=== PATIENT | male | born 1935 | race Caucasian/White ===

== ENCOUNTER 2018-06-11 12:25 | Inpatient (IN) | payer MEDICARE ==
[~2018-06-11] VITALS: Ht 172.7 cm; Wt 84.1 kg
--- NOTE | ~2018-06-11 | MORECARE ---
CASE MANAGEMENT DISCHARGE SUMMARY PATIENT: RUFUS BYOCE UNIT: [id number] ADM DATE: 06/11/18 AGE: 83 : 36 SEX: M ROOM/BED: D.2211 AUTHOR: CHAI JUSTICE PHYSICIAN: REFERRING PHYSICIAN: NIKHIL LY MD DATE OF SERVICE: 06/13/18 Discharge Plan Patient Name: RUFUS BOYCE [facility] [facility] 1935 Planned Disposition: Home Anticipated Discharge Date: Discharge Date: Expected LOS: Initial Reviewer: [email or web address] Initial Review Date: 06/11/2018 Generated: 06/13/18 11:45 am DCPIA - Discharge Planning Initial Assessment Updated by [email or web address]: Aylin Sargent on 06/13/18 10:43 am * Is the patient Alert and Oriented? Yes * How many steps to enter\exit or inside your home? * PCP david * Pharmacy [address] * Preadmission Environment Home Alone * ADLs Independent * Equipment None * List name and contact numbers for known caregivers / representatives who currently or will assist patient after discharge: ISMAEL [phone] * Verbal permission to speak to the caregivers and representatives has been obtained from the patient. N/A * Community resources currently utilized None * Additional services required to return to the preadmission environment? No * Can the patient safely return to the preadmission environment? Yes * Has this patient been hospitalized within the prior 30 days at any hospital? No Last DP export: 06/13/18 8:11 Patient Name: RUFUS BOYCE Page [id number] at 1045 All edits/amendments must be made on the electronic document DICTATION DATE: 06/13/18 1044 ELECTRONIC BENCH TECHNICIAN: DORIS 06/13/18 1044 RPT#: [id number] DC DATE: STATUS: ADM IN [facility] [address] [place] [address] END OF REPORT
--- NOTE | ~2018-06-11 | MORECARE ---
CASE MANAGEMENT DISCHARGE SUMMARY PATIENT: RUFUS BOYCE UNIT: [id number] ADM DATE: 06/11/18 AGE: 83 : 36 SEX: M ROOM/BED: D.2211 AUTHOR: CHAI JUSTICE PHYSICIAN: REFERRING PHYSICIAN: NIKHIL LY MD DATE OF SERVICE: 06/15/18 Discharge Plan Patient Name: RUFUS BOYCE Facility: [facility]:[place] : 1935 Planned Disposition: Home Anticipated Discharge Date: Discharge Date: Expected LOS: Initial Reviewer: [email or web address] Initial Review Date: 06/11/2018 Generated: 06/15/18 10:38 am Comments DCP- Discharge Planning Updated by [email or web address]: Cora Walden on 06/15/18 8:[address] Patient Name: RUFUS BOYCE Encounter No: [id number] : 1935 Primary Insurance: MEDICARE PART A ONLY Anticipated DC Date: Planned Disposition: Home External Planned Provider: : DCP follow-up note: Patient in agreement with discharge plan. Declines home health. States his ex- will be assisting him. States his nephew will be taking him home today. No changes to plan. Case management will follow and assist as needed. Cora Walden DCP- Discharge Planning Updated by [email or web address]: Aylin Sargent on 06/13/18 9:[address] Patient Name: RUFUS BOYCE Admission Status: ER Accout number: [id number] Admission Date: 06-11-2018 : 1935 Admission Diagnosis:OTHER SPECIFIED DISORDERS OF BLADDER Attending: NIKHIL LY Current LOS: 2 Anticipated DC Date: Planned Disposition: Home Primary Insurance: MEDICARE PART A ONLY Discharge Planning Comments: CM met with patient to assess discharge planning needs. Patient stated that he lives independently at home in [place]. His daughter will be the one to take him home. He stated that right now he does not use anything nor does he think he will need it at discharge. He does not use any DME or community resources. He may need home health, but he was not open to it at this time. I explained to him that we will see what the MD says. CM will continue to follow [employer] Commerce Retailer: Aylin Sargent DCPIA - Discharge Planning Initial Assessment Updated by [email or web address]: Aylin Sargent on 06/13/18 10:43 am * Is the patient Alert and Oriented? Yes * How many steps to enter\exit or inside your home? * PCP david * Pharmacy [address] * Preadmission Environment Home Alone * ADLs Independent * Equipment None * List name and contact numbers for known caregivers / representatives who currently or will assist patient after discharge: ISMAEL [phone] * Verbal permission to speak to the caregivers and representatives has been obtained from the patient. N/A * Community resources currently utilized None * Additional services required to return to the preadmission environment? No * Can the patient safely return to the preadmission environment? Yes * Has this patient been hospitalized within the prior 30 days at any hospital? No Coverage Notice Reviewer: [id number] Payal Walden Notice Issued Date-Time: 06/15/2018 9:25 Notice Type: IM Discharge Notice Notice Delivered To: Patient Relationship to Patient: Self Skin Care Instructor Name: Delivery Method: HAND - Hand Delivered Marielos Days: Prior Verbal Notification: Recipient Understood Notice: Yes Recipient Signature: Yes Med Rec Note Co-signed by Attending: Coverage Notice Comment: IMM explained, signed, copy given, original placed in MR Last DP export: 06/13/18 9:53 Patient Name: RUFUS BOYCE Page [id number] at 0938 All edits/amendments must be made on the electronic document DICTATION DATE: 06/15/18936 TAPE EDITOR: DORIS 06/15/18936 RPT#: [id number] DC DATE: STATUS: ADM IN [facility] [address] [place] [address] END OF REPORT
--- NOTE | ~2018-06-11 | MORECARE ---
CASE MANAGEMENT DISCHARGE SUMMARY PATIENT: RUFUS BOYCE UNIT: [id number] ADM DATE: 06/11/18 AGE: 83 : 36 SEX: M ROOM/BED: D.2211 AUTHOR: CHAI JUSTICE PHYSICIAN: REFERRING PHYSICIAN: NIKHIL LY MD DATE OF SERVICE: 06/13/18 Discharge Plan Patient Name: RUFUS BOYCE Facility: [facility]:[place] : 1935 Planned Disposition: Anticipated Discharge Date: Discharge Date: Expected LOS: Initial Reviewer: [email or web address] Initial Review Date: 06/11/2018 Generated: 06/13/18 10:11 am Patient Name: RUFUS BOYCE Page 58739 at 0911 All edits/amendments must be made on the electronic document DICTATION DATE: 06/13/18910 PUBLIC SAFETY OFFICER: DORIS 06/13/18910 RPT#: [id number] DC DATE: STATUS: ADM IN [facility] [address] [place] [address] END OF REPORT
--- NOTE | ~2018-06-11 | OP ---
PATIENT NAME: RUFUS BOYCE MEDICAL RECORD: [id number] :37 LOCATION:D.MS [address] ADMISSION DATE:06/11/18 SURGEON: BRANDON CANTRELL MD DATE OF OPERATION: 06/12/2018 SURGEON: Brandon Cantrell MD ANESTHESIA: General anesthesia by Maria Dolores Mena CRNA. 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 PROCEDURE: Cystoscopy, bladder tumor resection greater than 5 cm, and bladder neck resection. FINDINGS: No urethral stricture or tumor. Obstructive bladder neck. Extensive tumor on the lateral left wall of the bladder and the bladder neck was surrounded by tumor. Also, a small island of tumor on the right posterior wall of the bladder. The ureteral orifices could not be seen. SPECIMENS: Bladder tumor. BLOOD LOSS: Minimal. CLINICAL HISTORY: This is an 83-year-old male, who came to the Emergency Room with ongoing gross hematuria. He has had this for over 3 months. He was treated by his primary care physician with antibiotics for a possible cystitis. This did not resolve the hematuria. On CT scan, he does not have any hydronephrosis or renal mass. However, there is a large mass in the left wall of the bladder, greater than 5 cm in total size. He comes today to have the bladder tumor resected. HE IS ALLERGIC TO [place]. He was given Ancef public information specialist to the OR. DESCRIPTION OF PROCEDURE: The patient was given induction of general anesthesia. He was then placed in dorsal lithotomy position and prepped and draped. A 17-Indian cystoscope with 30-degree lens was used initially for visualization. The penile urethra shows no lesions and no obstruction. The prostatic urethra shows some degree of enlargement of the lateral lobes, but the bladder neck is extremely tall. It was with some difficulty that I managed to get the scope into the bladder. Going into the bladder, we immediately encountered papillary tumor all around the bladder neck. Some of it extends on to the prostatic urethra near the bladder neck. There was a very shaggy necrotic tumor on the left lateral wall of the bladder extending from anteriorly to posteriorly. There was also some sessile bladder lesions on the right posterior wall of the bladder. There were no lesions on the right lateral wall of the bladder or the anterior wall of the bladder elsewhere. At this point, I requested muscle paralysis. He was given intubation and ventilation. He was then paralyzed. The reason for this is to prevent triggering the obturator reflex when I am resecting the left lateral wall of the bladder. We placed in our resectoscope, which uses a 24-Indian resection loop. Saline was used and bipolar cautery was used. I initially removed the small tumor on the right posterior wall of the bladder. Then, starting from the anterior portion of the left lateral wall tumor and heading posteriorly, I dissected through the tumor with the loop. At the end of the procedure, the bladder wall was thin, but it is not perforated. The tumor seems to be invasive. The tumor specimens were elliked out and sent to pathology in formalin. Any arterial bleeding that I OPERATIVE REPORT [id number] RUFUS BOYCE encountered was immediately cauterized. Final cystoscopic view showed no further bladder tumors floating around in the bladder. A 24-Indian 3-way Branham catheter was then inserted into the bladder. The balloon was inflated with 20 cc of sterile water. Continuous bladder irrigation with normal saline was started. TRANSINT:[id number] Voice Confirmation ID: [id number] DOCUMENT ID: [id number] BRANDON CANTRELL MD at 1001 CC: [id number] DICTATION DATE: 06/12/18 1558 AIRPLANE ENGINEER: 06/12/182042 ADM IN [facility] [address] [place] [id number]
--- NOTE | ~2018-06-11 | MORECARE ---
CASE MANAGEMENT DISCHARGE SUMMARY PATIENT: RUFUS BOYCE UNIT: [id number] ADM DATE: 06/11/18 AGE: 83 : 36 SEX: M ROOM/BED: D.2211 AUTHOR: VINHDOC PHYSICIAN: REFERRING PHYSICIAN: NIKHIL LY MD DATE OF SERVICE: 06/13/18 Discharge Plan Patient Name: RUFUS BOYCE Facility: [facility]:[place] : 1935 Planned Disposition: Home Anticipated Discharge Date: Discharge Date: Expected LOS: Initial Reviewer: [id number] Initial Review Date: 06/11/2018 Generated: 06/13/18 11:53 am Comments DCP- Discharge Planning Updated by [id number]: Aylin Sargent on 06/13/18 9:[address] Patient Name: RUFUS BOYCE Admission Status: ER Accout number: [id number] Admission Date: 06-11-2018 : 1935 Admission Diagnosis:OTHER SPECIFIED DISORDERS OF BLADDER Attending: NIKHIL LY Current LOS: 2 Anticipated DC Date: Planned Disposition: Home Primary Insurance: MEDICARE PART A ONLY Discharge Planning Comments: CM met with patient to assess discharge planning needs. Patient stated that he lives independently at home in [place]. His daughter will be the one to take him home. He stated that right now he does not use anything nor does he think he will need it at discharge. He does not use any DME or community resources. He may need home health, but he was not open to it at this time. I explained to him that we will see what the MD says. CM will continue to follow Filter Tender: Aylin aSrgent DCPIA - Discharge Planning Initial Assessment Updated by [email or web address]: Aylin Sargent on 06/13/18 10:43 am * Is the patient Alert and Oriented? Yes * How many steps to enter\exit or inside your home? * PCP david * Pharmacy [address] * Preadmission Environment Home Alone * ADLs Independent * Equipment None * List name and contact numbers for known caregivers / representatives who currently or will assist patient after discharge: ISMAEL [phone] * Verbal permission to speak to the caregivers and representatives has been obtained from the patient. N/A * Community resources currently utilized None * Additional services required to return to the preadmission environment? No * Can the patient safely return to the preadmission environment? Yes * Has this patient been hospitalized within the prior 30 days at any hospital? No Last DP export: 06/13/18 9:45 Patient Name: RUFUS BOYCE Page [id number] at 1054 All edits/amendments must be made on the electronic document DICTATION DATE: 06/13/181052 MICROBIOLOGY INSTRUCTOR: DORIS 06/13/181052 RPT#: [id number] DC DATE: STATUS: ADM IN [facility] [address] [place] [address] END OF REPORT
--- NOTE | ~2018-06-11 | MORECARE ---
CASE MANAGEMENT DISCHARGE SUMMARY PATIENT: RUFUS BOYCE UNIT: [id number] ADM DATE: 06/11/18 AGE: 83 : 36 SEX: M ROOM/BED: D.2211 AUTHOR: CHAI JUSTICE PHYSICIAN: REFERRING PHYSICIAN: NIKHIL LY MD DATE OF SERVICE: 06/15/18 Discharge Plan Patient Name: RUFUS BOYCE Facility: [facility]:[place] : 1935 Planned Disposition: Home Anticipated Discharge Date: Discharge Date: 06/15/2018 Expected LOS: 0 Initial Reviewer: [email or web address] Initial Review Date: 06/11/2018 Generated: 06/15/18 5:21 pm Comments DCP- Discharge Planning Updated by [email or web address]: Cora Walden on 06/15/18 8:[address] Patient Name: RUFUS BOYCE Encounter No: [id number] : 1935 Primary Insurance: MEDICARE PART A ONLY Anticipated DC Date: Planned Disposition: Home External Planned Provider: : DCP follow-up note: Patient in agreement with discharge plan. Declines home health. States his ex- will be assisting him. States his nephew will be taking him home today. No changes to plan. Case management will follow and assist as needed. Cora Walden DCP- Discharge Planning Updated by [email or web address]: Aylin Sargent on 06/13/18 9:[address] Patient Name: RUFUS BOYCE Admission Status: ER Accout number: [id number] Admission Date: 06-11-2018 : 1935 Admission Diagnosis:OTHER SPECIFIED DISORDERS OF BLADDER Attending: NIKHIL LY Current LOS: 2 Anticipated DC Date: Planned Disposition: Home Primary Insurance: MEDICARE PART A ONLY Discharge Planning Comments: CM met with patient to assess discharge planning needs. Patient stated that he lives independently at home in [place]. His daughter will be the one to take him home. He stated that right now he does not use anything nor does he think he will need it at discharge. He does not use any DME or community resources. He may need home health, but he was not open to it at this time. I explained to him that we will see what the MD says. CM will continue to follow Tube Closing Machine Operator: Aylin Sargent DCPIA - Discharge Planning Initial Assessment Updated by [email or web address]: Aylin Sargent on 06/13/18 10:43 am * Is the patient Alert and Oriented? Yes * How many steps to enter\exit or inside your home? * PCP david * Pharmacy [address] * Preadmission Environment Home Alone * ADLs Independent * Equipment None * List name and contact numbers for known caregivers / representatives who currently or will assist patient after discharge: ISMAEL [phone] * Verbal permission to speak to the caregivers and representatives has been obtained from the patient. N/A * Community resources currently utilized None * Additional services required to return to the preadmission environment? No * Can the patient safely return to the preadmission environment? Yes * Has this patient been hospitalized within the prior 30 days at any hospital? No Coverage Notice Reviewer: [id number] Payal Walden Notice Issued Date-Time: 06/15/2018 9:25 Notice Type: IM Discharge Notice Notice Delivered To: Patient Relationship to Patient: Self Rail Switch Operator Name: Delivery Method: HAND - Hand Delivered Marielos Days: Prior Verbal Notification: Recipient Understood Notice: Yes Recipient Signature: Yes Med Rec Note Co-signed by Attending: Coverage Notice Comment: IMM explained, signed, copy given, original placed in MR Last DP export: 06/15/18 8:38 Patient Name: RUFUS BOYCE Page 40792 at 1621 All edits/amendments must be made on the electronic document DICTATION DATE: 06/15/181620 MANOMETER TECHNICIAN: DORIS 06/15/18 162 RPT#: [id number] [place] DATE:06/15/18 STATUS: DIS IN [facility] [address] [place] [address] END OF REPORT
[~2018-06-11 12:25] MED LIST: BAYER CHEWABLE81 MG PO; CIPRO500 MG PO; COLACE100 MG PO; FLAGYL500 MG PO; FLOMAX0.4 MG PO; HYDROCODON-ACE1 EAC7 PO; HYDROCODONE-APA1 TAB PO; IMDUR30 MG PO; IPRAT-ALBUT 0.5-3 ML INH; LISINOPRIL10 MG PO; LOVENOX40 MG/0.4 SC; MEVACOR20 MG PO; MIRALAX17 GM PO; MORPHINE P30 MG/30 M IV; NEXIUM40 MG PO; Narcan INJ IV; ONDANSETRON4 MG/2 M3 IV; PHENERGAN25 M1 PO; PRILOSEC20 MG PO; PROTONIX20 MG PO; PROTONIX40 MG PO; PULMICORT0.5 MG/21 INH; SYMBICORT 16010.2 GM PO; VALIUM10 MG PO; VITAMIN B-1000 MCG/M IM; ZESTRIL20 MG PO; ZOSYN 3.3753.375 G1 IVPB; [UNRECOGNIZED DRUG - OTHER] RC
[2018-06-11 13:34] LABS: APPEARANCE CLEAR (CLEAR); BACTERIA MODERATE /hpf (NONE SEEN); COLOR YELLOW (YELLOW); EPITHELIAL CELLS 0-5 /hpf (0-5); MUCUS <1+ /lpf (NONE SEEN); SPECIFIC GRAVITY 1.015 (1.005-1.020)
[2018-06-11 15:28] LABS: BASOPHILS 0.5 % (0-2); EOSINOPHILS 5.1 % (0-7); HEMATOCRIT 41.3 % (42.0-54.0); HEMOGLOBIN 13.9 g/dL (13.5-17.5); IMMATURE GRANULOCYTES 0.2 % (0-5); LYMPHOCYTES 20.8 % (15-50); MCH 29.1 pg (26.0-34.0); MCHC 33.7 g/dL (31.0-37.0); MCV 86.4 fL (80.0-100.0); MEAN PLATELET VOLUME 8.7 fL (7.4-10.4); MONOCYTES 8.7 % (2-11); NEUTROPHILS 64.7 % (40-80); RBC 4.78 10x6/uL (4.20-6.10); RDW 14.4 % (11.5-14.5); WBC 10.2 10x3/uL (4.8-10.8)
[2018-06-11 15:45] LABS: ALBUMIN 3.6 g/dL (3.4-5.0); ANION GAP 10.1 mmol/L (8-16); BILIRUBIN - TOTAL 0.45 mg/dL (0.2-1.3); CALCIUM 8.4 mg/dL (8.5-10.1); CARBON DIOXIDE 31.3 mmol/L (21.0-32.0); CREATININE - SERUM 1.2 mg/dL (0.6-1.3); POTASSIUM - SERUM 4.4 mmol/L (3.5-5.1); PROTEIN - SERUM 7.9 g/dL (6.4-8.2)
[2018-06-11 16:00] LABS: PLATELET COUNT 292 10x3/uL (130-400)
[2018-06-11 16:35] VITALS: BMI 28.1
[2018-06-11 17:05] VITALS: Ht 172.7 cm; Wt 84.1 kg
[2018-06-11 19:04] VITALS: BP 198/88
[2018-06-11 20:33] VITALS: BP 197/88
[2018-06-12] VITALS (7 sets, daily range): BP systolic 118–190; BP diastolic 58–91
[2018-06-13 01:38] VITALS: BP 133/61
[2018-06-13 04:45] VITALS: BP 124/64
[2018-06-13 04:58] LABS: BASOPHILS 0.2 % (0-2); EOSINOPHILS 1.9 % (0-7); HEMATOCRIT 37.7 % (42.0-54.0); HEMOGLOBIN 12.2 g/dL (13.5-17.5); IMMATURE GRANULOCYTES 0.2 % (0-5); LYMPHOCYTES 12.3 % (15-50); MCH 28.5 pg (26.0-34.0); MCHC 32.4 g/dL (31.0-37.0); MCV 88.1 fL (80.0-100.0); NEUTROPHILS 77.4 % (40-80); PLATELET COUNT 257 10x3/uL (130-400); RBC 4.28 10x6/uL (4.20-6.10); RDW 14.4 % (11.5-14.5); WBC 12.2 10x3/uL (4.8-10.8)
[2018-06-13 05:22] LABS: ANION GAP 13.8 mmol/L (8-16); CARBON DIOXIDE 25.9 mmol/L (21.0-32.0); CREATININE - SERUM 1.2 mg/dL (0.6-1.3)
[2018-06-13 05:23] LABS: POTASSIUM - SERUM 3.7 mmol/L (3.5-5.1)
[2018-06-13 09:52] VITALS: BP 113/42
[2018-06-13 12:24] VITALS: BP 122/55
[2018-06-13 17:45] VITALS: BP 133/62
[2018-06-13 20:12] VITALS: BP 123/43
[2018-06-14] VITALS (7 sets, daily range): BP systolic 129–175; BP diastolic 41–66
[2018-06-14 05:20] LABS: BASOPHILS 0.1 % (0-2); EOSINOPHILS 3.6 % (0-7); HEMATOCRIT 33.6 % (42.0-54.0); IMMATURE GRANULOCYTES 0.3 % (0-5); LYMPHOCYTES 14.4 % (15-50); MCH 28.2 pg (26.0-34.0); MCHC 32.7 g/dL (31.0-37.0); MCV 86.2 fL (80.0-100.0); MEAN PLATELET VOLUME 8.7 fL (7.4-10.4); NEUTROPHILS 69.6 % (40-80); PLATELET COUNT 224 10x3/uL (130-400); RDW 14.1 % (11.5-14.5); WBC 11.7 10x3/uL (4.8-10.8)
[2018-06-14 05:44] LABS: ANION GAP 10.7 mmol/L (8-16); CALCIUM 8.1 mg/dL (8.5-10.1); CARBON DIOXIDE 27.6 mmol/L (21.0-32.0); CREATININE - SERUM 1.1 mg/dL (0.6-1.3); POTASSIUM - SERUM 3.3 mmol/L (3.5-5.1)
[2018-06-15 04:00] VITALS: BP 126/56
[2018-06-15 05:55] LABS: BASOPHILS 0.2 % (0-2); EOSINOPHILS 6.9 % (0-7); HEMATOCRIT 33.3 % (42.0-54.0); IMMATURE GRANULOCYTES 0.2 % (0-5); LYMPHOCYTES 15.9 % (15-50); MCH 28.1 pg (26.0-34.0); MCV 85.2 fL (80.0-100.0); MEAN PLATELET VOLUME 9.1 fL (7.4-10.4); MONOCYTES 13.6 % (2-11); NEUTROPHILS 63.2 % (40-80); PLATELET COUNT 247 10x3/uL (130-400); RBC 3.91 10x6/uL (4.20-6.10); RDW 14.3 % (11.5-14.5); WBC 8.7 10x3/uL (4.8-10.8)
[2018-06-15 05:58] LABS: CALC OSMOLALITY 272 mosm/kg (275-300); CALCIUM 8.1 mg/dL (8.5-10.1); CARBON DIOXIDE 27.5 mmol/L (21.0-32.0); CHLORIDE - SERUM 101 mmol/L (98-107); CREATININE - SERUM 0.9 mg/dL (0.6-1.3); GLUCOSE 93 mg/dL (74-106); MAGNESIUM - SERUM 2.1 mg/dL (1.8-2.4); POTASSIUM - SERUM 3.5 mmol/L (3.5-5.1); SODIUM 136 mmol/L (136-145); UREA NITROGEN 14 mg/dL (7-18); eGFR NON AFRICAN AMERICAN 86 mL/min (90-120)
[2018-06-15 08:27] VITALS: BP 145/50
[2018-06-15] MEDS ORDERED: HYDROCODON-ACE1 EAC7 PO (09:00)
[2018-06-15] MEDS ORDERED: MIRALAX17 GM PO (11:50)
[2018-06-15] MEDS ORDERED: OXYBUTYNIN CHLOR5 MG PO (11:50)
[2018-06-15] MEDS ORDERED: LISINOPRIL10 MG PO (11:50)
== END 2018-06-15 13:26 | disposition home or self-care (01) | DRG 669 ==
LOC: D.ER 12:25 → D.EDHOLD 14:55 → D.MS 14:55
PROVIDERS: Emergency Medicine; Internal Medicine Nephrology; Urology
PROC: 0TBB8ZZ Excision of Bladder, Via Natural or Artificial Opening Endoscopic (ICD-10-PCS; principal; 2018-06-12 12:00)
PROC: 0TBC8ZZ Excision of Bladder Neck, Via Natural or Artificial Opening Endoscopic (ICD-10-PCS; 2018-06-12 12:00)
DX: N32.89 Other specified disorders of bladder (principal); N39.0 Urinary tract infection, site not specified; D62 Acute posthemorrhagic anemia; I51.0 Cardiac septal defect, acquired; F17.213 Nicotine dependence, cigarettes, with withdrawal; I10 Essential (primary) hypertension; K21.9 Gastro-esophageal reflux disease without esophagitis; J44.9 Chronic obstructive pulmonary disease, unspecified

== ENCOUNTER → 2018-06-29 08:56 | Outpatient (CLI) | payer SELFPAY ==
[2018-06-11 17:05] VITALS: BMI 28.1
[~2018-06-29 08:56] MED LIST changes: +OXYBUTYNIN CHLOR5 MG PO
== END | disposition home or self-care (01) ==
LOC: D.NM 08:15
DX: C67.2 Malignant neoplasm of lateral wall of bladder (principal)